=== PATIENT | female | born 1980 | race Caucasian/White ===

== ENCOUNTER 2020-05-14 06:43 | Observation (INO) ==
[2020-05-14] MEDS ORDERED: 0.9 % Sodium Chloride 1,000 ML IVC ONE (07:16)
[2020-05-14] MEDS ORDERED: Isovue-370 500 ML BOTTLE IVP ONE (07:27)
[2020-05-14] MEDS ORDERED: Ondansetron 4 MG/2 ML VIAL IVP ONE (07:28)
[2020-05-14 07:57] LABS: Bilirubin,Urine Negative (Negative); Blood,Urine Large (Negative); Clarity,Urine Clear (Clear); Color,Urine Light-Yellow (Yellow); Glucose,Urine (UA) Normal (Normal); Ketones,Urine Negative (Negative); Leukocyte Esterase,Urine Negative (Negative); Mucus,Urine Few per lpf (None-Few); Nitrite,Urine Negative (Negative); Protein,Urine 50 mg/dL (Neg-Trace); RBC,Urine 50-100 per hpf (0-3); Specific Gravity,Urine 1.024 (1.010-1.025); Squamous Epithelial Cell,Urine Few per hpf (None-Few); Urobilinogen,Urine Normal (Normal)
[2020-05-14 08:08] LABS: Basophils # 0.1 K/mcL (0.0-0.2); Basophils % 0.7 %; Eosinophils % 0.5 %; Hematocrit 39.7 % (35.3-44.9); Immature Granulocytes % 0.5 % (0-4); Lymphocytes # 1.8 K/mcL (0.6-4.6); Lymphocytes % 20.8 %; Mean Corpuscular HGB Conc 32.7 g/dL (31.6-35.5); Mean Corpuscular Hemoglobin 28.9 pg (28.0-33.3); Mean Corpuscular Volume 88.2 fL (83.0-100.0); Mean Platelet Volume 10.1 fL (9.4-12.4); Monocytes # 0.4 K/mcL (0.0-1.3); Monocytes % 4.7 %; Neutrophils # 6.4 K/mcL (1.6-8.9); Platelet Count 328 K/mcL (140-400); Red Cell Distribution Width 12.6 % (11.5-14.5); Segmented Neutrophils % 72.8 %; White Blood Count 8.8 K/mcL (4.3-11.1)
[2020-05-14 08:20] LABS: Alanine Aminotransferase 16 Units/L (7-52); Albumin 4.2 g/dL (3.5-5.7); Albumin/Globulin Ratio 1.3 (1.1-2.2); Alkaline Phosphatase 75 Units/L (34-104); Aspartate Amino Transferase 16 Units/L (13-39); BUN/Creatinine Ratio 19 (6-26); Bilirubin,Direct 0.1 mg/dL (0.0-0.2); Bilirubin,Indirect 0.2 mg/dL (0.0-1.0); Bilirubin,Total 0.3 mg/dL (0.3-1.0); Blood Urea Nitrogen 16 mg/dL (6-20); Carbon Dioxide 23 mEq/L (23-29); Chloride 103 mEq/L (98-107); Globulin 3.3 g/dL (2.4-3.5); Glucose 131 mg/dL (70-105); Lipase 18 Units/L (11-82); Osmolality,Calculated 283 (280-300); Potassium 3.9 mEq/L (3.5-5.1); Sodium 135 mEq/L (136-145); Total Protein 7.5 g/dL (6.4-8.9); eGFR For African Americans > 60 (> 60); eGFR For Non-African Americans > 60 (> 60)
[2020-05-14] MEDS ORDERED: *HR* FentaNYL (PF) 100 MCG/2 ML VIAL IVP STA (09:36)
[2020-05-14] MEDS ORDERED: *HR* HYDROmorphone (PF) 1 MG/ML SYRINGE IVP ONE (12:23)
[2020-05-14 14:44] LABS: Adenovirus Not Detected (Not Detect); Bordetella Pertussis Not Detected (Not Detect); Chlamydophila pneumoniae Not Detected (Not Detect); Coronavirus 229E Not Detected (Not Detect); Coronavirus HKU1 Not Detected (Not Detect); Coronavirus NL63 Not Detected (Not Detect); Coronavirus OC43 Not Detected (Not Detect); Human Metapneumovirus Not Detected (Not Detect); Human Rhinovirus/Enterovirus Not Detected (Not Detect); Influenza A Subtype 2009 H1 Not Detected (Not Detect); Influenza B Not Detected (Not Detect); Mycoplasma pneumoniae Not Detected (Not Detect); Parainfluenza Virus 1 Not Detected (Not Detect); Parainfluenza Virus 2 Not Detected (Not Detect); Parainfluenza Virus 3 Not Detected (Not Detect); Parainfluenza Virus 4 Not Detected (Not Detect); Respiratory Syncytial Virus Not Detected (Not Detect); SARS-CoV-2 Not Detected (Not Detect)
[2020-05-14] MEDS ORDERED: Lidocaine -MPF 2% 2 ML VIAL ONE (14:56)
[2020-05-14] MEDS ORDERED: *HR* Rocuronium Bromide 50 MG/5 ML VIAL ONE (14:56)
[2020-05-14] MEDS ORDERED: Lidocaine HCL 4 ML Topical Solution (Laryng-O-Jet Kit Sterile Pak) TP ONE (14:56)
[2020-05-14] MEDS ORDERED: Ondansetron 4 MG/2 ML VIAL ONE (14:56)
[2020-05-14] MEDS ORDERED: Dexamethasone 4 MG/ML VIAL ONE (14:56)
[2020-05-14] MEDS ORDERED: *HR* Propofol 200 MG/20 ML VIAL IVP ONE ×2 (14:57)
[2020-05-14] MEDS ORDERED: *HR* FentaNYL (PF) 100 MCG/2 ML VIAL ONE (14:57)
[2020-05-14] MEDS ORDERED: *HR* Midazolam HCl 2 MG/2 ML VIAL ONE (15:01)
[2020-05-14] MEDS ORDERED: Acetaminophen IV 1,000 MG/100 ML BAG IVPB ONE ×2 (15:23→16:00)
[2020-05-14] MEDS ORDERED: Famotidine 20 MG/2 ML VIAL ONE (15:24)
[2020-05-14] MEDS ORDERED: ceFAZolin 3,000 MG in Water for inj. (sterile) 30 ML IVP ONE (15:31)
[2020-05-14] MEDS ORDERED: *HR* HYDROMORPHONE 2 MG/ML VIAL ONE (15:54)
[2020-05-14] MEDS ORDERED: CeFAZolin Syr 3,000MG/30 ML 3,000 MG/30 ML SYRINGE IVPB ONE (16:15)
[2020-05-14] MEDS ORDERED: Ketorolac 30 MG/ML VIAL IVP PRN (16:22)
[2020-05-14] MEDS ORDERED: *HR* OxyCODONE/APAP 5/325 TABLET PO PRN (16:22)
[2020-05-14] MEDS ORDERED: Ibuprofen 600 MG TABLET PO PRN (16:22)
[2020-05-14] MEDS ORDERED: Ondansetron 4 MG/2 ML VIAL IVP PRN (16:22)
[2020-05-14] MEDS: 0.9 % Sodium Chloride 1,000 ML IVC SCH (18:00)
[2020-05-14] MEDS ORDERED: Venlafaxine XR (24 HR) 150 MG CAP.ER.24H PO SCH (21:45)
[2020-05-14] MEDS: lisinopriL 10 MG TABLET PO SCH (22:26)
[2020-05-15 07:06] VITALS: BP 107/69
[2020-05-15] MEDS: 0.9 % Sodium Chloride 1,000 ML IVC SCH (07:36)
[2020-05-15] MEDS: lisinopriL 10 MG TABLET PO SCH (07:43)
[2020-05-15] MEDS ORDERED: Venlafaxine XR (24 HR) 150 MG CAP.ER.24H PO SCH (21:00)
== END 2020-05-15 12:16 | disposition home or self-care (01) ==
LOC: 3BNU 06:43 → EMEROOARM 06:43 → 3BNU 13:47
PROVIDERS: ADMIT Surgery; ATTEND Surgery